=== PATIENT | female | born 1990 | race Caucasian/White ===

== ENCOUNTER 2016-12-10 21:00 | Emergency (ER) | payer MEDICAID, OTHER ==
[~2016-12-10] VITALS: Ht 167.6 cm; Wt 116.5 kg
[~2016-12-10 21:00] MED LIST: ACET1TAB40 PO; IBUP-1542 PO; MECL12.574 PO; NITR-58 PO
[2016-12-10 21:08] VITALS: Ht 167.6 cm; Wt 116.5 kg
[2016-12-10] MEDS ORDERED: BACTDS PO (22:32)
[2016-12-10] MEDS ORDERED: CEPH-443 PO (22:32)
[2016-12-10] MEDS ORDERED: IBUP-1542 PO (22:32)
--- NOTE | 2016-12-11 00:04 | ERA ---
ER Documentation Chief Complaint Date/Time DATE: 12/11/16 TIME: 00:01 Chief Complaint Mouth and face pain X 2 weeks. HPI Patient presents with dental pain lower left anterior jawline. Patient has not done anything to relieve symptoms. Patient describes the pain is dull and worse when eating and palpation. Patient denies any redness, swelling, warmth to touch, with difficulty breathing. Patient never had symptoms like this before. Patient denies any trismus or change in voice. ROS All systems reviewed and are negative except as per history of present illness. Medications Home Meds Active Scripts Ibuprofen* (Motrin*) 600 Mg Tab, 600 MG PO Q6H Y for PAIN AND OR ELEVATED TEMP, #30 TAB Prov:ANA PAULA VILLATORO PA-C 12/10/16 Sulfamethoxazole-Trimethoprim* (Bactrim* DS) 800-160 Mg Tab, 1 TAB PO DAILY for 5 Days, TAB Prov:ANA PAULA VILLATORO PA-C 12/10/16 Cephalexin* (Keflex*) 500 Mg Capsule, 500 MG PO QID for 5 Days, CAP Prov:ANA PAULA VILLATORO PA-C 12/10/16 Nitrofurantoin Monohyd Macrocr* (Macrobid*) 100 Mg Capsr, 100 MG PO BID for 7 Days, CAP Prov:HIGINIO BEYER 12/14/15 Meclizine Hcl* (Antivert*) 12.5 Mg Tab, 12.5 MG PO Q6H Y for dizziness, #20 TAB Prov:HIGINIO BEYER 12/13/15 Ibuprofen* (Motrin*) 600 Mg Tab, 600 MG PO Q6, #30 TAB Prov:HIGINIO BEYER 12/13/15 Acetaminophen-Codeine* (Acetaminophen-Cod #3*) 300-30 Mg Tab, 1 TAB PO Q4H Y for PAIN LEVEL 6-10, #15 TAB Prov:CHO,REJI 03/14/15 Ibuprofen* (Motrin*) 600 Mg Tab, 600 MG PO Q6H Y for PAIN LEVEL 1-5, #15 TAB Prov:CHO,REJI 15 Allergies Allergies: Coded Allergies: No Known Allergies (Verified Allergy, Mild, 05/31/10) PMhx/Soc Medical and Surgical Hx: pt denies Medical Hx, pt denies Surgical Hx History of Surgery: No Anesthesia Reaction: No Hx Neurological Disorder: No Hx Respiratory Disorders: No Hx Cardiac Disorders: No Hx Psychiatric Problems: No Hx Miscellaneous Medical Probl: No Hx Alcohol Use: No Hx Substance Use: No Hx Tobacco Use: No Smoking Status: Never smoker Physical Exam Vitals Vital Signs Date Time Temp Pulse Resp B/P Pulse Ox O2 Delivery O2 Flow Rate FiO2 12/10/16 21:08 98.6 93 18 135/69 100 Physical Exam Const: Morbidly obese 26-year-old female Head: Atraumatic Eyes: Normal Conjunctiva ENT: Normal External Ears, Nose. Mouth exam is unremarkable only noting mild erythema on left lower jawline by the first canine. Neck: Full range of motion..~ No meningismus. Resp: Clear to auscultation bilaterally Cardio: Regular rate and rhythm, no murmurs Abd: Soft, non tender, non distended. Normal bowel sounds Skin: No petechiae or rashes Back: No midline or flank tenderness Ext: No cyanosis, or edema Neur: Awake and alert Psych: Normal Mood and Affect Procedures/MDM Patient shows no signs of airway endangerment. Denies shortness of breath or chest pain. Patient reports trismus. Patient most likely has an abscess. We will prescribe the patient Keflex and Bactrim. Have advised patient if she does not get better the next few days to return to the emergency department or if the symptoms worsen to return to the emergency department immediately. I will also prescribe ibuprofen for discomfort. Advised patient to follow-up with her dentist. Departure Diagnosis: Primary Impression: Dental abscess Condition: Stable Patient Instructions: Dental Abscess Additional Instructions: Return to emergency department if symptoms worsen. ANA PAULA VILLATORO PA-C Dec 11, 2016 00:04
== END 2016-12-10 22:40 | disposition home or self-care (01) ==
LOC: FTE 21:00
DX: K04.7 Periapical abscess without sinus (principal)
CPT/HCPCS: 99284

== ENCOUNTER 2017-09-20 17:09 | Emergency (ER) | END 2017-09-21 03:55 | disposition left against medical advice (07) ==

== ENCOUNTER 2018-11-22 17:47 | Emergency (ER) | payer SELFPAY ==
[~2018-11-22] VITALS: Ht 170.2 cm; Wt 118.4 kg
[~2018-11-22 17:47] MED LIST changes: +BACTDS PO; +CEPH-443 PO
[2018-11-22 17:53] VITALS: BP 136/79; PULSE 75; RESP 20; Ht 170.2 cm; Wt 118.4 kg
== END 2018-11-22 21:01 | disposition left against medical advice (07) ==
LOC: E/R 17:47
DX: Z53.21 Procedure and treatment not carried out due to patient leaving prior to being seen by health care provider (principal)
CPT/HCPCS: 93005